=== PATIENT | female | born 1990 | race African-American/Black ===

== ENCOUNTER 2018-08-13 16:11 | Emergency (ER) | payer MEDICAID ==
[~2018-08-13] VITALS: Ht 157.5 cm; Wt 95.0 kg
[2018-08-13 20:20] VITALS: BP 122/74
== END 2018-08-13 21:04 | disposition home or self-care (01) ==
LOC: ER 16:11
DX: Z32.02 Encounter for pregnancy test, result negative (principal)
CPT/HCPCS: 81025; 99282

== ENCOUNTER 2019-04-09 02:01 | Emergency (ER) | payer MEDICAID ==
[~2019-04-09] VITALS: Ht 157.5 cm; Wt 103.0 kg
[2019-04-09 02:45] VITALS: BP 171/86
== END 2019-04-09 05:49 | disposition left against medical advice (07) ==
LOC: ER 02:01
DX: Z53.21 Procedure and treatment not carried out due to patient leaving prior to being seen by health care provider (principal)

== ENCOUNTER 2019-04-26 08:54 | Emergency (ER) | payer MEDICAID ==
[~2019-04-26] VITALS: Ht 157.5 cm; Wt 102.0 kg
[2019-04-26] MEDS: KETOROLAC 30MG/ML VIAL IM ONE ×2 (09:59→10:06)
[2019-04-26] MEDS ORDERED: IBUPROFEN 600MG TABLET PO ONE (10:15)
[2019-04-26 11:56] VITALS: BP 137/82
== END 2019-04-26 11:57 | disposition home or self-care (01) ==
LOC: ER 09:03
DX: S22.31XA Fracture of one rib, right side, initial encounter for closed fracture (principal); V03.90XA Pedestrian on foot injured in collision with car, pick-up truck or van, unspecified whether traffic or nontraffic accident, initial encounter; Y93.89 Activity, other specified; Y92.488 Other paved roadways as the place of occurrence of the external cause
CPT/HCPCS: 71045; 71100; 81025; 99283; J1885